=== PATIENT | female | born 1955 | race Caucasian/White ===

== ENCOUNTER 2021-04-22 13:42 | Outpatient (CLI) | payer MEDICARE, SELFPAY ==
--- NOTE | ~2021-04-22 | MM_ITS ---
EXAMINATION: MM screening sylvia BI w lukas HISTORY: Screening mammogram, family history of breast cancer in her mother. TECHNIQUE: Craniocaudal and mediolateral oblique 3-D tomosynthesis images were obtained and synthetic 2-D images were generated. CAD analysis was submitted and interpreted. COMPARISON: No prior mammogram is available for comparison at this institution. BREAST PARENCHYMAL COMPOSITION: The breasts are heterogeneously dense, which may obscure small masses . FINDINGS: There is no evidence of suspicious mass, calcification, or architectural distortion to sugg est malignancy in either breast. IMPRESSION: 1. No mammographic evidence of malignancy. 2. Recommend routine screening mammography in one year. BI-RADS Category 1: Negative Reviewed, dictated and finalized at location A.
--- NOTE | ~2021-04-22 | DEXA_ITS ---
Bone Density Report Name: Lisa Norman Age: 66 Sex: Female Ethnicity: White Date of : 1955 Indication: postmenopausal; screening for osteoporosis; height loss; hysterectomy; Referring Provider: Evelio Ashley Study: Bone densitometry was performed. Exam Date: April 22, 2021 Accession number: [id number] Bone Density: Region BMD T-score Z-score Classification AP Spine(L1-L4) 0.794 -2.3 -0.3 Osteopenia Femoral Neck (Left) 0.507 -3.1 -1.4 Osteoporosis Total Hip (Left) 0.658 -2.3 -0.9 Osteopenia Femoral Neck (Right) 0.546 -2.7 -1.0 Osteoporosis Total Hip (Right) 0.670 -2.2 -0.8 Osteopenia Femoral Neck Mean 0.527 -2.9 -1.2 Osteoporosis Total Hip Mean 0.664 -2.3 -0.9 Osteopenia World Health Organization criteria for BMD impression classify patients as: Normal (T-score at or above -1.0), Osteopenia (T-score between -1.0 and -2.5), or Osteoporosis (T-score at or below -2.5). 10-year Fracture Risk: FRAX not reported because: Some T-score for Spine Total or Hip Total or Femoral Neck at or below -2.5 Clinical Information Provided by Patient: Has the following medical conditions: Hysterectomy Patient maximum height was 58 Menopause Age: 28 Drinks caffeinated beverages Onset of menses at age 15 Number of children 3 Impression: The patient has osteoporosis, based on the Left Femoral Neck T-score. Discussion: INCREASED RISK OF FRACTURE. BONE DENSITY IS UNDESIRABLY LOW AT ONE OR MORE SKELETAL SITES, CONSISTENT WITH POSTMENOPAUSAL OSTEOPOROSIS. This patient's lowest T-score meets the World Health Organization's (WHO) criteria for osteoporosis at one or more sites (T-score -2.5 or below). In untreated patients, the risk of osteoporotic fracture increases approximately two-fold for each 1.0 SD decrease in T-score. Low bone density is not the only risk factor for fracture; also consider factors such as patient's age, frailty or poor health, risk of falling, risk of injury, previous osteoporotic fracture, family history of osteoporosis, cigarette smoking, low body weight, etc. Not everyone with low bone mineral density has osteoporosis; osteomalacia and other metabolic bone disorders should also be considered. Patients who have osteoporosis should be evaluated for specific diseases and conditions (secondary causes) that may cause or contribute to bone loss. The [place] [employer] Endocrinologists (AACE) and National Osteoporosis Foundation (NOF) recommend pharmacologic intervention for all postmenopausal women whose T-score is in this range. The patient should follow a healthful lifestyle (good nutrition with adequate calcium and vitamin D, and appropriate weight-bearing exercise). Follow-Up: Consider a repeat BMD and Vertebral Fracture Assessment (VFA) exam in 2 year
--- NOTE | ~2021-04-22 | XR_ITS ---
EXAMINATION: XR chest 2V EXAM DATE: 04/22/2021 14:33 INDICATION: Cough x 4 months. TECHNIQUE: Frontal and lateral projections of the chest obtained and reviewed. There is no prior ghassan dy for comparison. FINDINGS: The lungs are clear. There are no pleural effusions. The cardiomediastinal silhouette is within normal limits. There is no pneumothorax suspected. The bones and soft tissues are unremarkab le. IMPRESSION: No acute cardiopulmonary findings. Reviewed, dictated and finalized at location B.
[2021-04-22 13:58] LABS: Basophils Absolute Auto 0.08 K/mm3 (0.00-0.10); Basophils Percent Auto 0.9 % (0.0-1.0); Eosinophils Absolute Auto 0.19 K/mm3 (0.02-0.50); Eosinophils Percent Auto 2.2 % (1.0-6.0); Hematocrit 37.7 % (35.0-42.0); Hemoglobin 12.3 g/dL (11.7-13.8); Immature Granulocyte Absolute 0.03 K/mm3 (0.00-0.00); Immature Granulocyte Percent A 0.3 % (0.0-0.0); Lymphocytes Absolute Auto 2.79 K/mm3 (1.10-4.50); Lymphocytes Percent Auto 32.4 % (18.0-42.0); Mean Corpuscular HGB Conc 32.6 g/dL (32.0-36.0); Mean Corpuscular Hemoglobin 26.7 pg (27.0-31.0); Mean Platelet Volume 9.7 fl (9.2-11.8); Monocytes Absolute Auto 0.63 K/mm3 (0.10-0.90); Monocytes Percent Auto 7.3 % (2.0-11.0); Neutrophils Absolute Auto 4.9 K/mm3 (1.7-7.2); Neutrophils Percent Auto 56.9 % (50.0-70.0); Platelet Count Result 199 K/mm3 (150-420); White Blood Count 8.6 K/mm3 (4.8-10.8)
[2021-04-22 14:04] LABS: Add Urine Microscopic? YES; Appearance Urine Clear (Clear); Bilirubin Urine Negative (Negative); Blood Urine Negative (Negative); Color Urine Light Yellow (Yellow); Glucose Urine UA Negative (Negative); Ketones Urine Negative (Negative); Leukocyte Esterase Ur Trace (Negative); Nitrate Urine Negative (Negative); Protein Urine Negative (Negative); Specific Grav Ur <= 1.005 (1.010-1.020); Urobilinogen Urine 0.2 mg/dL (0.2-1.0); pH Urine 6.5 (5.0-8.0)
[2021-04-22 14:09] LABS: RBC Urine None seen /hpf (0-2); Squamous Epithelial Cell Urine Rare /hpf (Few); WBC Urine 0-3 /hpf (0-3)
[2021-04-22 14:10] LABS: Bacteria Urine None seen /hpf
[2021-04-22 14:42] LABS: Alanine Aminotransferase 24 U/L (14-59); Albumin Level 3.8 g/dL (3.4-5.0); Alkaline Phosphatase 134 U/L (46-116); Anion Gap 13 mmol/L (8-16); Aspartate Amino Transferase 21 U/L (15-37); Bilirubin,Total 0.2 mg/dL (0.00-1.00); Blood Urea Nitrogen 9 mg/dL (7-18); Calcium 8.9 mg/dL (8.5-10.1); Carbon Dioxide 26 mmol/L (21-32); Chloride 106 mmol/L (98-108); Cholesterol 267 mg/dL (0-200); Estimated Glomerular Filt Rate > 60; Glucose 82 mg/dL (70-99); HDL Direct 79 mg/dL (40-60); LDL Cholesterol Calculated 167 mg/dL (<130); Osmolality Calculated 297 mOsm/kg (285-295); Potassium 4.1 mmol/L (3.5-5.1); Sodium 145 mmol/L (136-145); Thyroid Stimulating Hormone 1.88 uIU/mL (0.36-3.74); Total Protein 6.9 g/dL (6.4-8.2); Triglycerides 106 mg/dL (0-150)
[2021-04-29 20:02] LABS: Vitamin D 25 Hydroxy 29 ng/mL (30-100)
== END 2021-04-22 13:43 | disposition home or self-care (01) ==
PROVIDERS: PCP Internal Medicine; Visit Provider Internal Medicine
DX: Z12.31 Encounter for screening mammogram for malignant neoplasm of breast (principal); R05 Cough; Z13.820 Encounter for screening for osteoporosis; Z78.0 Asymptomatic menopausal state; R63.5 Abnormal weight gain; Z79.899 Other long term (current) drug therapy
CPT/HCPCS: 36415; 71046; 77063; 77067; 77080; 80053; 80061; 81001; 82306; 84443; 85025

== ENCOUNTER 2021-05-14 09:36 | Outpatient (CLI) | payer MEDICARE, SELFPAY ==
--- NOTE | ~2021-05-14 | XR_ITS ---
EXAMINATION: XR ribs RT 2V INDICATION: Right rib pain TECHNIQUE: 3 views of the right ribs were obtained. COMPARISON: 04/22/2021 FINDINGS: No displaced rib fracture is identified. The visualized portions of the thorax are unremark able. There is no pleural effusion or pneumothorax. IMPRESSION: 1. No acute cardiopulmonary abnormality or evidence of displaced rib fracture. Reviewed, dictated and finalized at location A.
== END 2021-05-14 09:37 | disposition home or self-care (01) ==
LOC: CHSIMG 09:38
PROVIDERS: PCP Internal Medicine; Visit Provider Nurse Practitioner Family
DX: R07.81 Pleurodynia (principal)
CPT/HCPCS: 71100

== ENCOUNTER 2022-12-31 07:19 | Outpatient (CLI) | payer MEDICARE, SELFPAY ==
--- NOTE | ~2022-12-31 | MM_ITS ---
EXAMINATION: MM screening sylvia BI w lukas HISTORY: Screening mammogram TECHNIQUE: Craniocaudal and mediolateral oblique 3-D tomosynthesis images were obtained and synthetic 2-D images were generated. CAD analysis was submitted and interpreted. COMPARISON: 04/22/2021 bilateral screening mammogram BREAST PARENCHYMAL COMPOSITION: FINDINGS: There is no evidence of suspicious mass, calcification, or architectural distortion to sugg est malignancy in either breast. There has been no suspicious interval change. IMPRESSION: 1. No mammographic evidence of malignancy. 2. Recommend routine screening mammography in one year. BI-RADS Category 1: Negative Reviewed, dictated and finalized at location A.
== END 2022-12-31 07:20 | disposition home or self-care (01) ==
LOC: CHSIMG 07:22
PROVIDERS: PCP Internal Medicine; Visit Provider Internal Medicine
DX: Z12.31 Encounter for screening mammogram for malignant neoplasm of breast (principal)
CPT/HCPCS: 77063; 77067

== ENCOUNTER 2023-02-16 16:30 | Outpatient (CLI) | payer MEDICARE, SELFPAY ==
--- NOTE | ~2023-02-16 | XR_ITS ---
EXAMINATION: XR chest 2V DATE: 02/16/2023 17:04 INDICATION: Shortness of breath. Cough. TECHNIQUE: Frontal and lateral views of the chest were obtained. COMPARISON: None. FINDINGS: There is no pneumonia, pleural effusion, or pneumothorax. Cardiomegaly is noted. IMPRESSION: 1. Cardiomegaly. Reviewed, dictated and finalized at location E. IMPRESSION: 1. Cardiomegaly.
== END 2023-02-16 16:31 | disposition home or self-care (01) ==
LOC: CHSIMG 16:32
PROVIDERS: PCP Internal Medicine; Visit Provider Internal Medicine
DX: R05.9 Cough, unspecified (principal); I51.7 Cardiomegaly
CPT/HCPCS: 71046

== ENCOUNTER 2023-02-26 14:15 | Outpatient (CLI) | payer MEDICARE, SELFPAY ==
--- NOTE | 2023-02-26 01:00 | ECHO_ITS ---
Patient Info Name: Lisa Norman Age: 67 years : 1955 Gender: Female Ht: 59 in Wt: 120 lbs BSA: 1.52 m2 HR: 65 bpm BP: 126 / 73 mmHg Heart Rhythm: Sinus Rhythm Technical Quality: Fair Exam Date: 02/26/2023 2:12 PM Exam Location: [facility] Patient Status: Outpatient Admit Date: 02/26/2023 Staff Ordering Physician: Evelio Ashley MD Copier Operator: Suzy Salvador RDCS Attending Provider: Evelio Ashely MD Exam Type: CA echo doppler color flow Study Info Indications - enlarged heart Complete two-dimensional, color flow and Doppler transthoracic echocardiogram is performed. Summary 1. Complete two-dimensional, color flow and Doppler transthoracic echocardiogram is performed. 2. Left ventricular chamber dimension is normal. 3. Left ventricular systolic function is normal, estimated at 65-70%. 4. The left ventricular diastolic function is grade I diastolic dysfunction. 5. E/e' 18 is elevated. 6. There is trace tricuspid valve regurgitation. 7. No pulmonary hypertension, estimated pulmonary arterial systolic pressure is 27 mmHg. Left Ventricle E/e' 18 is elevated. Left ventricular chamber dimension is normal. Left ventricular systolic function is normal, estimated at 65-70%. The left ventricular diastolic function is grade I diastolic dysfunction. Right Ventricle Right ventricular systolic function is normal and with normal TAPSE 2.2 cm. Right ventricular chamber dimension is normal. Left Atria Left atrial chamber dimension is normal. Right Atria Right atrial chamber dimension is normal. Aortic Valve The aortic valve is trileaflet. There is no aortic valve stenosis. There is no aortic valve regurgitation. Pulmonic Valve There is no pulmonic regurgitation. Mitral Valve There is no mitral valve stenosis. There is no mitral valve regurgitation. Tricuspid Valve There is trace tricuspid valve regurgitation. No pulmonary hypertension, estimated pulmonary arterial systolic pressure is 27 mmHg. Pericardium/Pleural There is no pericardial effusion. Inferior Vena Cava Normal inferior vena cava with >50% collapse upon inspiration consistent with normal right atrial pressure, 5 mmHg. Aorta The aortic root size at the sinus of Valsalva is normal. Left Ventricular Outflow Tract Name Value Normal LVOT 2D LVOT Diameter 2.0 cm LVOT Doppler LVOT Peak Velocity 92 cm/s LVOT Peak Gradient 3 mmHg LVOT Mean Gradient 2 mmHg LVOT VTI 19 cm LVOT VTI/AV VTI Ratio 0.8 LVOT Stroke Volume 58 ml Pulmonic Valve Name Value Normal RVOT Doppler RVOT Peak Gradient 1 mmHg PV Doppler PV Peak Velocity 92 cm/s PV Peak Gradient 3 mmHg
== END 2023-02-26 14:16 | disposition home or self-care (01) ==
LOC: CHSIMG 14:16
PROVIDERS: PCP Internal Medicine; Visit Provider Internal Medicine
DX: I51.7 Cardiomegaly (principal)
CPT/HCPCS: 93306

== ENCOUNTER 2023-03-03 08:36 | Outpatient (CLI) | payer MEDICARE, SELFPAY ==
[2023-03-03 08:47] LABS: Basophils Absolute Auto 0.11 K/mm3 (0.00-0.10); Basophils Percent Auto 1.3 % (0.0-1.0); Eosinophils Absolute Auto 0.34 K/mm3 (0.02-0.50); Eosinophils Percent Auto 4.1 % (1.0-6.0); Hematocrit 37.3 % (35.0-42.0); Hemoglobin 12.2 g/dL (11.7-13.8); Immature Granulocyte Absolute 0.02 K/mm3 (0.00-0.00); Immature Granulocyte Percent A 0.2 % (0.0-0.0); Lymphocytes Absolute Auto 2.77 K/mm3 (1.10-4.50); Lymphocytes Percent Auto 33.2 % (18.0-42.0); Mean Corpuscular HGB Conc 32.7 g/dL (32.0-36.0); Mean Corpuscular Hemoglobin 26.9 pg (27.0-31.0); Mean Corpuscular Volume 82.3 fL (78.0-102.0); Mean Platelet Volume 9.9 fl (9.2-11.8); Monocytes Absolute Auto 0.74 K/mm3 (0.10-0.90); Monocytes Percent Auto 8.9 % (2.0-11.0); Neutrophils Absolute Auto 4.4 K/mm3 (1.7-7.2); Neutrophils Percent Auto 52.3 % (50.0-70.0); Platelet Count Result 210 K/mm3 (150-420); Red Blood Count 4.53 M/mm3 (4.20-5.40); Red Cell Distribution Width 14.2 % (11.6-14.4); White Blood Count 8.3 K/mm3 (4.8-10.8)
[2023-03-03 09:26] LABS: Alanine Aminotransferase 34 U/L (14-59); Albumin Level 3.8 g/dL (3.4-5.0); Alkaline Phosphatase 164 U/L (46-116); Anion Gap 10 mmol/L (8-16); Aspartate Amino Transferase 37 U/L (15-37); Bilirubin,Total 0.3 mg/dL (0.00-1.00); Blood Urea Nitrogen 10 mg/dL (7-18); Calcium 8.8 mg/dL (8.5-10.1); Carbon Dioxide 26 mmol/L (21-32); Chloride 107 mmol/L (98-108); Estimated Glomerular Filt Rate > 60; Glucose 96 mg/dL (70-99); Osmolality Calculated 295 mOsm/kg (285-295); Potassium 3.8 mmol/L (3.5-5.1); Sodium 143 mmol/L (136-145); Total Protein 7.3 g/dL (6.4-8.2)
[2023-03-03 09:33] LABS: CRP < 0.5 mg/dL (0.0-0.9)
== END 2023-03-03 08:37 | disposition home or self-care (01) ==
LOC: CHSLAB 08:37
PROVIDERS: PCP Internal Medicine; Visit Provider Internal Medicine
DX: I51.7 Cardiomegaly (principal)
CPT/HCPCS: 36415; 80053; 85025; 86140

== ENCOUNTER 2023-03-08 09:00 | Outpatient (NON) | payer MEDICARE, SELFPAY | END 2023-03-08 09:01 | disposition home or self-care (01) | PROVIDERS: PCP Internal Medicine; Visit Provider Internal Medicine Gastroenterology | DX: R85.7 Abnormal histological findings in specimens from digestive organs and abdominal cavity (principal) | CPT/HCPCS: 88305 ==

== ENCOUNTER 2023-03-08 10:58 | Day surgery (SDC) | payer MEDICARE, SELFPAY ==
[2023-02-23 11:13] VITALS: BMI 24.5
--- NOTE | 2023-03-05 14:16 | WPDANESEPPF ---
Anes - Initial Pre Proc Eval Procedure: Operation Date: 03/08/23 13:00 Proposed Procedures p Esophagogastroduodenoscopy - Kevin Vitale MD s Diagnostic Colonoscopy - Kevin Vitale MD Date/Time: 03/05/23 14:16 Surgeon: Kevin Vitale MD Pre Op Diagnosis: IBS w/Diarrhea, Gerd, Diarrhea Patient Data Age: 67 Gender: F Height: 1.5 m Weight: 55 kg Allergies Allergy/AdvReac Type Severity Reaction Status Date / Time No Known Allergies Allergy Unverified 03/08/23 11:43 Home Medications Medication Instructions Recorded Confirmed Type calcium polycarbophil 625 mg 1,250 mg PO DAILY 02/03/23 03/08/23 History tablet (FiberCon) cholecalciferol (vitamin D3) 125 125 mcg PO DAILY 02/03/23 03/08/23 History mcg (5,000 unit) capsule ergocalciferol (vitamin D2) 1,250 1,250 mcg PO WEEKLY 02/03/23 03/08/23 History mcg (50,000 unit) capsule famotidine 40 mg tablet 40 mg PO DAILY #30 tabs 02/03/23 03/08/23 Rx rosuvastatin 5 mg tablet 5 mg PO DAILY 02/03/23 03/08/23 History conjugated estrogens 0.625 mg/gram 1 applic vaginal DAILY 02/23/23 03/08/23 History vaginal cream (Premarin) montelukast 10 mg tablet 10 mg PO DAILY 02/23/23 03/08/23 History (Singulair) dicyclomine 10 mg capsule See Rx Instructions .Route 02/26/23 03/08/23 Rx .COMPLEX #120 caps Patient hx anesthesia problems: none Family hx anesthesia problems: none Results Review: All pre-operative results and documents have been reviewed as part of the pre-operative evaluation. COUNT INCLUDES THE [facility] Past Medical History Medical History (Updated 03/08/23 @ 12:21 by Wes Harrison DO) Abnormal inflammatory bowel disease panel Edema in legs, echo pending Enlarged heart per X ray, echo pending GERD (gastroesophageal reflux disease) Hyperlipidemia Irritable bowel syndrome with diarrhea Nausea Social History Social History Smoking status: Never smoker Alcohol intake: never Substance use: never Substance use type: does not use Living arrangements: with family Spiritual care concerns: No Anes - Eval Final PreProcedure Day of Procedure 03/05/23 14:16 Patient weight: overweight Heart: regular rate and rhythm Lungs: clear to auscultation Airway: Mallampati scale class II Neurological: alert and oriented Last oral intake: >/= 8 hours ASA classification: III Emergent: no Anesthetic plan: proceed Anesthesia type and monitoring: general GIVS and standard monitoring Results Review: All pre-operative results and documents have been reviewed as part of the pre-operative evaluation. Informed Consent: The patient's anesthetic plan and its attendant risks and benefits were discussed with the patient/family/POA. Questions were solicited and answers provided to the satisfaction of the patient/family/POA.
[2023-03-08 11:40] VITALS: BP 107/80; PULSE 88; RESP 20; TEMP 36.7; O2SAT 100
[2023-03-08] MEDS: LACTATED RINGERS 1,000 ML 150 ML IV CONT (11:57)
--- NOTE | 2023-03-08 12:06 | PM.HPGS ---
History of Present Illness History of Present Illness Consent: Risks, benefits, and alternatives have been discussed and questions answered. Patient agrees to proceed with procedure. Chief complaint: IBS w/Diarrhea, Gerd, Diarrhea Narrative: Lisa Norman is a 67 year old female who was referred for persistent acid reflux symptoms. She denies dysphagia. She had previously been using famotidine. She is also having a change in bowel habits. A couple of months ago she had severe diarrhea with in fact some incontinence. There has been no blood in her stools. Blood work that was done reveals slight elevation of ASCA-IgG but a normal IgA. There is no significant weight loss. She did apparently have a colonoscopy a few years ago for screening revealing 1 small polyp. Review of Systems Review of Systems: All systems reviewed & are unremarkable except as noted in HPI and below PMFSH Past Medical History Medical History Abnormal inflammatory bowel disease panel GERD (gastroesophageal reflux disease) Hyperlipidemia Irritable bowel syndrome with diarrhea Nausea Social History Social History Smoking status: Never smoker Alcohol intake: never Substance use: never Substance use type: does not use Living arrangements: with family Spiritual care concerns: No Meds Home Medications and Allergies Home Medications Medication Instructions Recorded Confirmed Type calcium polycarbophil 625 mg 1,250 mg PO DAILY 02/03/23 03/08/23 History tablet (FiberCon) cholecalciferol (vitamin D3) 125 125 mcg PO DAILY 02/03/23 03/08/23 History mcg (5,000 unit) capsule ergocalciferol (vitamin D2) 1,250 1,250 mcg PO WEEKLY 02/03/23 03/08/23 History mcg (50,000 unit) capsule famotidine 40 mg tablet 40 mg PO DAILY #30 tabs 02/03/23 03/08/23 Rx rosuvastatin 5 mg tablet 5 mg PO DAILY 02/03/23 03/08/23 History conjugated estrogens 0.625 mg/gram 1 applic vaginal DAILY 02/23/23 03/08/23 History vaginal cream (Premarin) montelukast 10 mg tablet 10 mg PO DAILY 02/23/23 03/08/23 History (Singulair) dicyclomine 10 mg capsule See Rx Instructions .Route 02/26/23 03/08/23 Rx .COMPLEX #120 caps Allergies Allergy/AdvReac Type Severity Reaction Status Date / Time No Known Allergies Allergy Unverified 03/08/23 11:43 Vital Signs Vital Signs - 24 hr 03/08/23 11:40 Temperature 36.7 C Pulse Rate 88 Respiratory Rate 20 Blood Pressure 107/80 Pulse Oximetry 100 Oxygen Delivery Room Air Exam Const: General: alert Orientation/consciousness: patient oriented x3 Resp: Auscultation: clear to auscultation bilaterally Cardio: Rhythm: regular rhythm GI: GI Palp: Yes Soft to palpation and No Tenderness to palpation present (GI) Neuro: General: patient oriented x3 Results Results Additional studies: EGD with possible biopsy or dilatation or cautery. Assessment and Plan Assessment and plan (1) GERD (gastroesophageal reflux disease): Code(s): K21.9 - Gastro-esophageal reflux disease without esophagitis Status: Acute Assessment and Plan: EGD with possible biopsy or dilatation or cautery. (2) Change in bowel habits: Code(s): R19.4 - Change in bowel habit Status: Acute Assessment and Plan: Colonoscopy with possible biopsy or polypectomy or cautery or injection of substances.
[2023-03-08 12:51] VITALS: BP 93/60; PULSE 89; RESP 16; O2SAT 97
[2023-03-08 13:01] VITALS: BP 113/79; PULSE 87; RESP 16; O2SAT 100
[2023-03-08 13:11] VITALS: BP 128/84; PULSE 72; RESP 18; O2SAT 98
--- NOTE | 2023-03-08 13:24 | WPDANESPN ---
Anes - Prog Note Post-Op Date/Time: 03/08/23 13:24 Cardiovascular status: normal Respiratory status: normal Airway patency: baseline Mental status: baseline Post-Op hydration status: normal Vital Signs: Last Vital Signs Temp 36.7 C 03/08/23 11:40 Pulse 87 03/08/23 13:01 Resp 16 03/08/23 13:01 BP 113/79 03/08/23 13:01 Pulse Ox 100 03/08/23 13:01 O2 Del Method Room Air 03/08/23 13:01 Pain Score (VAS): 0 I/O: Intake & Output 03/07/23 03/08/23 03/08/23 23:59 07:59 15:59 Intake Total 200 Balance 200 Post-procedural complaints: none Patient Feedback: Patient satisfied with anesthetic care. Other Findings: Patient vital signs back to baseline. Patient denies nausea and vomiting. Patient's pain under control. Patient OK for discharge.
== END 2023-03-08 13:41 | disposition home or self-care (01) ==
PROVIDERS: PCP Internal Medicine; Visit Provider Internal Medicine Gastroenterology
PROC: 0DJ08ZZ Inspection of Upper Intestinal Tract, Via Natural or Artificial Opening Endoscopic (ICD-10-PCS; CPT 43235; principal; 2023-03-08 13:00)
PROC: 0DJD8ZZ Inspection of Lower Intestinal Tract, Via Natural or Artificial Opening Endoscopic (ICD-10-PCS; CPT 45378; 2023-03-08 13:00)
DX: R19.4 Change in bowel habit (principal)
CPT/HCPCS: 45380; 43239

== ENCOUNTER 2023-11-12 09:30 | Outpatient (CLI) | payer MEDICARE, SELFPAY ==
[2023-11-12 11:30] LABS: Toxigenic C. Diff NEGATIVE (NEGATIVE)
[2023-11-20 02:13] LABS: Calprotectin, Stool 84 mcg/g; Pancreatic Elastase, Stool >500 mcg/g
== END 2023-11-12 09:31 | disposition home or self-care (01) ==
LOC: ANHLAB 09:31
PROVIDERS: PCP Internal Medicine; Visit Provider Nurse Practitioner
DX: R19.7 Diarrhea, unspecified (principal); R15.9 Full incontinence of feces
CPT/HCPCS: 82653; 83993; 87045; 87269; 87427; 87449; 87493

== ENCOUNTER 2024-05-16 13:19 | Outpatient (CLI) | payer MEDICARE, SELFPAY ==
--- NOTE | ~2024-05-16 | DEXA_ITS ---
Bone Density Report Name: AMIE SANCHEZ Age: 69 Sex: Female Ethnicity: White Date of : 1955 Indication: postmenopausal; screening for osteoporosis; height loss; hysterectomy; Referring Provider: Evelio Ashley Study: Bone densitometry was performed. Exam Date: May 16, 2024 Accession number: [id number] Bone Density: Region BMD T-score Z-score Classification AP Spine(L1-L4) 0.829 -2.0 0.2 Osteopenia Femoral Neck (Left) 0.522 -2.9 -1.1 Osteoporosis Total Hip (Left) 0.650 -2.4 -0.8 Osteopenia Femoral Neck (Right) 0.586 -2.4 -0.5 Osteopenia Total Hip (Right) 0.674 -2.2 -0.6 Osteopenia Femoral Neck Mean 0.554 -2.7 -0.8 Osteoporosis Total Hip Mean 0.662 -2.3 -0.7 Osteopenia World Health Organization criteria for BMD impression classify patients as: Normal (T-score at or above -1.0), Osteopenia (T-score between -1.0 and -2.5), or Osteoporosis (T-score at or below -2.5). 10-year Fracture Risk: FRAX not reported because: Some T-score for Spine Total or Hip Total or Femoral Neck at or below -2.5 Clinical Information Provided by Patient: Has used the following medications: Vitamin D, Calcium Has the following medical conditions: Hysterectomy Patient maximum height was 58 Menopause Age: 28 Drinks caffeinated beverages Onset of menses at age 15 Number of children 3 Impression: The patient has osteoporosis, based on the Left Femoral Neck T-score. Discussion: INCREASED RISK OF FRACTURE. BONE DENSITY IS UNDESIRABLY LOW AT ONE OR MORE SKELETAL SITES, CONSISTENT WITH POSTMENOPAUSAL OSTEOPOROSIS. This patient's lowest T-score meets the World Health Organization's (WHO) criteria for osteoporosis at one or more sites (T-score -2.5 or below). In untreated patients, the risk of osteoporotic fracture increases approximately two-fold for each 1.0 SD decrease in T-score. Low bone density is not the only risk factor for fracture; also consider factors such as patient's age, frailty or poor health, risk of falling, risk of injury, previous osteoporotic fracture, family history of osteoporosis, cigarette smoking, low body weight, etc. Not everyone with low bone mineral density has osteoporosis; osteomalacia and other metabolic bone disorders should also be considered. Patients who have osteoporosis should be evaluated for specific diseases and conditions (secondary causes) that may cause or contribute to bone loss. The [place] Association of Clinical Endocrinologists (AACE) and National Osteoporosis Foundation (NOF) recommend pharmacologic intervention for all postmenopausal women whose T-score is in this range. The patient should follow a healthful lifestyle (good nutrition with adequate calcium and vitamin D, and appropriate weight-bearing exercise). Follow-Up: Consider a repeat BMD and Ve
--- NOTE | ~2024-05-16 | MM_ITS ---
EXAMINATION: MM screening sylvia BI w lukas HISTORY: Screening TECHNIQUE: Craniocaudal and mediolateral oblique 3-D tomosynthesis images were obtained and synthetic 2-D images were generated. CAD analysis was submitted and interpreted. COMPARISON: Comparison to multiple prior studies sequentially, with oldest reviewed study dated 03/2021. BREAST PARENCHYMAL COMPOSITION: Not dense: There are scattered areas of fibroglandular density. FINDINGS: There is no evidence of suspicious mass, calcification, or architectural distortion to sugg est malignancy in either breast. There has been no suspicious interval change. IMPRESSION: 1. No mammographic evidence of malignancy. 2. Recommend routine screening mammography in one year. BI-RADS Category 1: Negative Reviewed, dictated and finalized at location B.
== END 2024-05-16 13:20 | disposition home or self-care (01) ==
LOC: CHSIMG 13:20
PROVIDERS: PCP Internal Medicine; Visit Provider Internal Medicine
DX: Z12.31 Encounter for screening mammogram for malignant neoplasm of breast (principal); Z78.0 Asymptomatic menopausal state; M85.89 Other specified disorders of bone density and structure, multiple sites; M81.0 Age-related osteoporosis without current pathological fracture
CPT/HCPCS: 77063; 77067; 77080

== ENCOUNTER 2024-10-06 10:50 | Outpatient (CLI) | payer MEDICARE, SELFPAY ==
--- NOTE | ~2024-10-06 | XR_ITS ---
Right Hand Technique: PA, oblique, and lateral views were obtained. Clinical History: Third digit pain Findings: No acute fracture or dislocation is seen. Osseous alignment is anatomic. Joint spaces are p reserved. Soft tissues are unremarkable. Impression: Unremarkable right hand. Reviewed, dictated and finalized at location . 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
[2024-10-06 11:05] LABS: Hematocrit 37.1 % (35.0-42.0); Hemoglobin 12.2 g/dL (11.7-13.8); Mean Corpuscular HGB Conc 32.9 g/dL (32-36); Mean Corpuscular Hemoglobin 26.7 pg (27.0-31.0); Mean Corpuscular Volume 81.2 fL (78.0-102.0); Mean Platelet Volume 9.3 fl (9.2-11.8); Platelet Count Result 219 K/mm3 (150-420); Red Blood Count 4.57 M/mm3 (4.20-5.40); Red Cell Distribution Width 13.7 % (11.6-14.4); White Blood Count 9.8 K/mm3 (4.8-10.8)
[2024-10-06 13:09] LABS: Alanine Aminotransferase 18 U/L (14-59); Albumin Level 3.6 g/dL (3.4-5.0); Alkaline Phosphatase 148 U/L (46-116); Anion Gap 12 mmol/L (4-12); Aspartate Amino Transferase 19 U/L (15-37); Bilirubin,Total 0.2 mg/dL (0.00-1.00); Blood Urea Nitrogen 14 mg/dL (7-18); Calcium 9.1 mg/dL (8.5-10.1); Carbon Dioxide 25 mmol/L (21-32); Chloride 104 mmol/L (98-108); Cholesterol 232 mg/dL (0-200); Estimated Glomerular Filt Rate > 60; Glucose 86 mg/dL (70-99); HDL Direct 88 mg/dL (40-60); LDL Cholesterol Calculated 122 mg/dL (<130); Osmolality Calculated 291 mOsm/kg (285-295); Potassium 4.2 mmol/L (3.5-5.1); Sodium 141 mmol/L (136-145); Total Protein 6.6 g/dL (6.4-8.2); Triglycerides 109 mg/dL (0-150); Uric Acid 2.2 mg/dL (2.6-6.0)
[2024-10-06 13:10] LABS: CRP < 0.5 mg/dL (0.0-0.9)
== END 2024-10-06 10:51 | disposition home or self-care (01) ==
PROVIDERS: PCP Internal Medicine; Visit Provider Internal Medicine
DX: M79.641 Pain in right hand (principal); E78.5 Hyperlipidemia, unspecified
CPT/HCPCS: 36415; 73130; 80053; 80061; 84550; 85027; 86140

== ENCOUNTER 2024-11-17 10:24 | Outpatient (CLI) | payer MEDICARE, SELFPAY ==
--- NOTE | ~2024-11-17 | XR_ITS ---
EXAMINATION: XR ankle LT min 3V DATE: 11/17/2024 10:56 INDICATION: Left ankle injury and pain. TECHNIQUE: 3 views of left ankle were obtained. COMPARISON: None. FINDINGS: There is an oblique fracture of distal fibula with medial aspect of the fracture line at th e level of the tibial plafond. The distal fracture fragment demonstrates 2 mm posterolateral displace ment. There is mild midfoot osteoarthritis. There are enthesophytes at the posterior and plantar aspe cts of calcaneal tuberosity. There is ankle soft tissue swelling. IMPRESSION: 1. Oblique fracture of distal fibula. Reviewed, dictated and finalized at location A. 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
--- NOTE | ~2024-11-17 | XR_ITS ---
EXAMINATION: XR foot LT min 3V DATE: 11/17/2024 10:56 INDICATION: Left foot pain. TECHNIQUE: 3 views of left foot were obtained. COMPARISON: None. FINDINGS: There is an oblique fracture of distal fibula. The distal fracture fragment demonstrates 2 mm posterolateral displacement. There is mild osteoarthritis of first metatarsophalangeal joint and s ome of the interphalangeal joints. There are enthesophytes at the posterior and plantar aspects of ca lcaneal tuberosity. IMPRESSION: 1. Oblique fracture of distal fibula. 2. Mild polyarticular osteoarthritis. Reviewed, dictated and finalized at location A. HIATRIC ARNP
[2024-11-17 11:20] LABS: Alanine Aminotransferase 27 U/L (14-59); Albumin Level 3.7 g/dL (3.4-5.0); Alkaline Phosphatase 150 U/L (46-116); Anion Gap 9 mmol/L (4-12); Aspartate Amino Transferase 23 U/L (15-37); Bilirubin,Total 0.3 mg/dL (0.00-1.00); Blood Urea Nitrogen 25 mg/dL (7-18); Calcium 8.8 mg/dL (8.5-10.1); Carbon Dioxide 26 mmol/L (21-32); Chloride 103 mmol/L (98-108); Estimated Glomerular Filt Rate 58; GGT 58 U/L (5-55); Glucose 97 mg/dL (70-99); Osmolality Calculated 290 mOsm/kg (285-295); Potassium 4.6 mmol/L (3.5-5.1); Sodium 138 mmol/L (136-145); Total Protein 6.6 g/dL (6.4-8.2)
== END 2024-11-17 10:25 | disposition home or self-care (01) ==
PROVIDERS: PCP Internal Medicine; Visit Provider Internal Medicine
DX: S93.402A Sprain of unspecified ligament of left ankle, initial encounter (principal); R74.8 Abnormal levels of other serum enzymes; S82.432A Displaced oblique fracture of shaft of left fibula, initial encounter for closed fracture; M19.072 Primary osteoarthritis, left ankle and foot
CPT/HCPCS: 36415; 73610; 73630; 80053; 82977; 84075; 84080

== ENCOUNTER 2024-11-29 08:51 | Outpatient (CLI) | payer MEDICARE, SELFPAY ==
--- NOTE | ~2024-11-29 | XR_ITS ---
Left ankle Technique: AP, oblique, and lateral views were obtained. Clinical History: Fracture follow-up COMPARISON: 11/17/2024 Findings: Oblique, minimally fracture the distal fibula is essentially unchanged from prior exam.. An kle mortise and other visualized joint spaces are preserved. Soft tissues are otherwise unremarkable . Impression: Essentially stable oblique, minimally displaced fracture the distal fibula. Reviewed, dictated and finalized at location . 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
--- OUTSIDE RECORDS SUMMARY | 2024-11-29 09:27 | XMS_ITS | Data Portability ---
Author Organization [facility], [address] [place] [address] ([place]) Address [address] [place] [address] Care Team Providers Care First Crusher Name Role Phone BALAJIDAVY GREEN Primary Care Provider [phone] Assessment Encounter Date Assessment Date Assessment LastModified by Organization Details LastModified Time 10/05/2024 10/05/2024 Physical therapy assessment: Patient presents with decreased pelvic floor strength including the external anal sphincter with a defect at the 12:00 location. Patient seems to have trouble with diarrhea however increasing fiber has made a positive impact on formation of her stools and thus decreased involuntary loss of stool. However she still has some loss of stool and most likely due to weakness and atrophy with in the sphincter lower abdominals and hips which prevent full closure and increase in the colorectal angle. Patient to be seen 1 time a week for 12 weeks Treatment will consist of the following: Therapeutic exercise Pelvic floor strengthening Hip strengthening of the gluteus medius Lower abdominal and core strengthening Therapeutic activities Increasing fiber trying to achieve 20 to 25 g/day Increasing water intake and decreasing bowel irritants. Electrical stimulation 50 Hz 10 seconds on 10 seconds off 15 minutes. Patient would benefit from a home units but will have to go through a 30-day trial first. Home exercise program was issued today with handouts and will be upgraded at each visit as patient tolerates The above rehabilitation plan has been prescribed and developed for the necessary care of this patient. Patient is in agreement with this plan. Thank you for this referral. Please refer to the Physical Therapy evaluation dated 10/05/2024. To comply with Medicare regulations, please review the documentation and indicate whether you agree or disagree with the plan of care/treatment. If you agree, please simply sign off on my documentation. Please reach out to me with any questions, thank you. [email or web address] Not available 10/05/2024 14:40:26 11/01/2024 11/01/2024 Physical therapy assessment: Patient has weak pelvic floor which carries over to delay D recruitment and resultant compensation with the diaphragm because of the weakness. Patient is not sure she is going to be able to continue physical therapy because of the commute but at this time she is not ready to say she wants to be discharged. Plan: Continue with physical therapy per plan of care [email or web address] Not available 11/01/2024 10:43:51 11/16/2024 11/16/2024 DATE OF INVESTIGATION: October 31, 2024 DATE OF INTERPRETATON: November 16, 2024 REASON FOR STUDY: Fecal incontinence. SUMMARY OF DATA: The patient has a low mean resting pressure of 21.6 mmHg and a short anal canal length of 1.1 cm. She has a diminished squeeze pressure with a mean increase of only 6.5 mmHg but a squeeze duration of 14.8 seconds which is low normal. Appropriate cough pressures. She has a paradoxical response to push with a 0% relaxation and residual push pressure of 29.4 mmHg. Diminished sensation pressure with a first sensation volume of 30 mL and a maximum tolerable volume of only 50 mL. RAIR is present at 58% with a 50 cc balloon. ASSESSMENT: Fecal incontinence. PLAN: The patient s anal manometry data would suggest that she would be a great candidate for sacral neuromodulation. Recommend an office visit to discuss. [email or web address] Not available 11/16/2024 18:07:27 Plan of Treatment Reminders Order Date Submit Date Provider Last Modified By Organization Details Last Modified Time Details Appointments None record ed. Lab None record ed. Referral None record ed. Procedures None record ed. Surgeries None record ed. Imaging None record ed. Medication Orders None record ed. Patient Targets Encounter Date Encounter Id Patient Goals Patient Target Last Modified By Organization Details Last Modified Time Goals:STG's to be met in 6 weeks1. Patient to increase endurance of her contraction holding 8 to 10 seconds2. Increase pelvic floor strength to a 2 out of 53. Increasing external anal sphincter strength to a 2 out of 54. Increasing lower abdominal strength to a 2+ out of 5LTG's to be met in 12 weeks1. Patient reports 75% decrease in fecal leakage with urge patient to hold back stool even when semisolid.2. Patient to report 75% decrease in fecal leakage with stress such as coughing3. Patient to demonstrate pelvic bracing with functional activities such as squat and lunge and cough4. Rehab potential: Fair rehab potential. Limiting factors include the severity of her loss of strength and a defect in the external anal sphincter. But feels she has fairly good potential to immediate release to the above-stated goalsPatients goal: To not leak stool [email or web address] Not available 10/05/2024 14:38:06 Goals:STG's to be met in 6 weeks1. Patient to increase endurance of her contraction holding 8 to 10 seconds2. Increase pelvic floor strength to a 2 out of 53. Increasing external anal sphincter strength to a 2 out of 54. Increasing lower abdominal strength to a 2+ out of 5LTG's to be met in 12 weeks1. Patient reports 75% decrease in fecal leakage with urge patient to hold back stool even when semisolid.2. Patient to report 75% decrease in fecal leakage with stress such as coughing3. Patient to demonstrate pelvic bracing with functional activities such as squat and lunge and cough4. Rehab potential: Fair rehab potential. Limiting factors include the severity of her loss of strength and a defect in the external anal sphincter. But feels she has fairly good potential to immediate release to the above-stated goalsPatients goal: To not leak stool [email or web address] Not available 11/01/2024 10:39:00 Patient InstructionsNo instructions recorded. Reason for Referral None Reported. Results Created Date Observation Date Name Description Value Unit Range Abnormal Flag Note LastModifiedBy Organization Detail LastModifiedTime 11/03/19 25 10/31/2024 anore ctal manom etry (PROC ) No observ ation record ed. [email or web address] Not Available 2024 09:56:08 Result Notes None recorded. Problems Name Problem SNOMED Code Status Onset Date Resolution Date Notes Provider Name and Address Organization Details Recorded Time Incontinenc e of feces 59438435 Active 2023 [facility] 5 18:18:08 Chronic diarrhea 799761831 Active 2023 Matty Albarran MD [address] [place] [address], [phone], [facility] 4 09:58:25 Acute diarrhea 199545807 Active 2023 Whitley Machado [facility] 4 08:09:58 Complete fecal incontinenc e 1390565830780 107 Active 2023 Mariposa Carpenter, DPT [address] [place] [address], [phone], [facility] 4 12:05:26 Problem Notes Documentation Provider Name and Address Organization Details Recorded Time [facility] [address] [address] Lisa Norman 69yo F 1955 #[id number] 11/19/2024 DearPaul Mehdi Albarran MD, Lisa Norman was seen in our office today 11/16/2024, and a copy of that evaluation is enclosed. Thank you for allowing us to participate in the care of your patient. Please contact us with any questions. Sincerely, Electronically Signed by: SILVIA JACKSON MD Encounter Reason/DateNone recorded 11/16/2024 - 07:45AM - [address] [facility] [facility] ([place])ProblemsReviewed Problems Incontinence of feces - Onset: 07/03/2024 Chronic diarrhea - Onset: 07/03/2024 Acute diarrhea - Onset: 07/06/2024 Complete fecal incontinence - Onset: 10/05/2024 Allergies Allergies not reviewed (last reviewed 08/09/2024) NKDA Medications Medications not reviewed (last reviewed 10/31/2024) NameDate Source cholestyramine (with sugar) 4 gram powder for susp in a packetTAKE 1 PACKET TWICE A DAY BY ORAL ROUTE FOR 30 DAYS.07/03/24 filled surescripts famotidine 40 mg tabletTAKE 1 TABLET BY MOUTH EVERY DAY08/02/24 filled surescripts FiberCon 625 mg tabletTake 1 tablet(s) twice a day by oral route for 30 days.07/03/24 prescribed Matty Albarran MD montelukast 10 mg tabletTAKE 1 TABLET BY MOUTH EVERY DAY IN THE CVUYKQO50/01/24 filled surescripts rosuvastatin 5 mg tabletTAKE 1 TABLET BY MOUTH EVERY DAY07/18/24 filled surescripts Family HistoryFamily History not reviewed (last reviewed 08/09/2024) Mother - Malignant neoplasm of female breast - Malignant neoplasm of uterus - Family history of malignant neoplasm - Chronic obstructive pulmonary disease - Heart disease Maternal Aunt - Malignant tumor of rectum Unspecified Relation - Attention deficit hyperactivity disorder Brother - Arthritis - Diabetes mellitus - Heart disease - Hypertensive disorder - Hypercholesterolemia Sister - Asthma - Chronic obstructive pulmonary disease Father - Chronic obstructive pulmonary disease Daughter - Diabetes mellitus - Hypertensive disorder Social HistorySocial History not reviewed (last reviewed 08/09/2024) Substance UseDo you or have you ever smoked tobacco?: Never smokerWhat is your level of alcohol consumption?: NoneDo you use any illicit or recreational drugs?: NoWhat was the date of your most recent tobacco screening?: 08/09/2024Education and OccupationAre you currently employed?: YesWhat 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?: Care giverAdvance DirectiveDo you have an advance directive?: NoSurgical HistorySurgical & Procedure History not reviewed (last reviewed 07/03/2024) Removal of tonsils - Tonsil removal Total hysterectomy - Hysterectomy (total) Colonoscopy with biopsy - Colonoscopy (camera from below into colon) Appendectomy - Appendix removal Cholecystectomy Hysterectomy Additional HistoryNone recordedHistory of Present IllnessNone recordedReview of SystemsNone recordedPhysical ExamNone recordedProcedure DocumentationNone recordedAssessment/PlanDATE OF INVESTIGATION: October 31, 2024 DATE OF INTERPRETATON: November 16, 2024 REASON FOR STUDY: Fecal incontinence. SUMMARY OF DATA: The patient has a low mean resting pressure of 21.6 mmHg and a short anal canal length of 1.1 cm. She has a diminished squeeze pressure with a mean increase of only 6.5 mmHg but a squeeze duration of 14.8 seconds which is low normal. Appropriate cough pressures. She has a paradoxical response to push with a 0% relaxation and residual push pressure of 29.4 mmHg. Diminished sensation pressure with a first sensation volume of 30 mL and a maximum tolerable volume of only 50 mL. RAIR is present at 58% with a 50 cc balloon. ASSESSMENT: Fecal incontinence. PLAN: The patient s anal manometry data would suggest that she would be a great candidate for sacral neuromodulation. Recommend an office visit to discuss.rja 1.Incontinence of feces, unspecified fecal incontinence typeR15.9: Full incontinence of feces Return to Office Mariposa Carpenter DPT for PT Return Visit 60.EST at [address] [facility] ([place]) on 11/22/2024 at 10:00 AM Silvia Jackson MD for Established Patient 15.EST at [address] [facility] ([place] on 11/27/2024 at 03:00 PM Matty Albarran MD [address] [place] [address], [phone], [facility] 11/19/2024 11:57:02 Procedures Surgical History Date Name Laterality Status Provider Name and Address Organization Details Recorded Time hysterectomy completed Neema Lacey [facility] 07/03/2024 09:35:38 cholecystectomy completed Neema Bains [facility] 07/03/2024 09:35:54 Appendectomy completed Not Available Health Note 08/02/2024 21:13:32 Colonoscopy with biopsy completed Not Available Health Note 08/02/2024 21:13:32 Total hysterectomy completed Not Available Healt h Note 08/02/2024 21:13:32 Removal of tonsils completed Not Available Healt h Note 08/02/2024 21:13:32 Imaging Results Imaging Date Name Status LastModified by Organiz ation Details LastModified Time 10/31/2024 anorectal manometry (PROC) completed [email or web address] Information not available 11/17/2024 09:56:08 Procedure Notes None recorded. Medical Equipment None Reported. Allergies No known drug allergies Medications Name Sig Start Date Stop Date Status Note LastModified by Organization Details LastModified Time famotidine 40 mg tablet TAKE 1 TABLET BY MOUTH EVERY DAY active Not Available Not Available No t Available tramadol 50 mg tablet TAKE 1/2-1 TABLET BY MOUTH AT BEDTIME active Not Available Not Available No t Available FiberCon 625 mg tablet Take 1 tablet twice a day by oral route for 30 days. 2023 active Not Available Not Available Not Avai lable montelukast 10 mg tablet TAKE 1 TABLET BY MOUTH EVERY DAY IN THE EVENING active Not Available Not Available No t Available dicyclomine 10 mg capsule TAKE 1 CAPSULE BY MOUTH FOUR TIMES A DAY 08/09 completed Not Available Not Available Not Available cholestyrami ne (with sugar) 4 gram powder for susp in a packet TAKE 1 PACKET TWICE A DAY BY ORAL ROUTE FOR 30 DAYS. 11/27 completed Not Available Not Available Not Available rosuvastatin 5 mg tablet TAKE 1 TABLET BY MOUTH EVERY DAY active Not Available Not Available No t Available Vitals Date Recorded Body height Body mass index (BMI) Body weight Systolic blood pressure Diastolic blood pressure Provider Name and Address Organization Details Last Updated DateTime 11/27/2024 147.32 cm 26.3 kg/m2 77823.92 g 116 mm[Hg] 72 mm[Hg] Eileen Corrales [facility] 16:17:10 Social History Question Answer Notes LastModified by Organizat ion Details LastModified Time Tobacco Smoking Status Never Smoker Not Available Health Note 08/02/2024 21:13:33 Do You Have An Advance Directive? No [email or web address] Information not available 08/02/2024 What Is Your Level Of Alcohol Consumption? None [email or web address] Information not available 08/02/2024 What Is Your Level Of Caffeine Consumption? Occasional [email or web address] Information not available 08/02/2024 Are You Currently Employed? Yes [email or web address] Information not available 08/02/2024 What Is Your Occupation? [employer] [email or web address] Information not available 08/02/2024 How Many Times Per Week Do You Exercise? 1-2 Times Per Week [email or web address] Information not available 08/02/2024 What Was The Date Of Your Most Recent Tobacco Screening? 08/09/2024 [email or web address] Information not available 08/02/2024 What Is Your Relationship Status? [email or web address] Information not available 08/02/2024 Do You Use Any Illicit Or Recreational Drugs? No [email or web address] Information not available 08/02/2024 Sex: Unknown Functional Status Question Answer Note LastModified by Organizat ion Details LastModified Time What is your exercise level? Occasional [email or web address] Information not available 08/02/2024 Mental Status None recorded. Family History Relationship Description Onset Age of this Age Resolved Age Notes LastModified by Organization Details LastModified Time Mother Malignant neoplasm of female breast [email or web address] Not available 2023 09:34:34 Mother Malignant neoplasm of uterus [email or web address] Not available 2023 09:34:56 Mother Family history of malignant neoplasm [email or web address] Not available 2023 21:13:32 Mother Chronic obstructive pulmonary disease [email or web address] Not available 2023 21:13:32 Mother Heart disease [email or web address] Not available 2023 21:13:32 Maternal Aunt Malignant tumor of rectum [email or web address] Not available 2023 09:35:19 Unspecified Relation Attention deficit hyperactivit y disorder [email or web address] Not available 08/02 21:13:32 Brother Arthritis [email or web address] Not availabl e 08/02/2024 21:13:32 Brother Diabetes mellitus [email or web address] Not available 2023 21:13:32 Brother Heart disease [email or web address] Not available 2023 21:13:32 Brother Hypertensive disorder [email or web address] Not available 2023 21:13:32 Brother Hypercholest erolemia [email or web address] Not available 2023 21:13:32 Sister Asthma [email or web address] Not available 21:13:32 Sister Chronic obstructive pulmonary disease [email or web address] Not available 2023 21:13:32 Father Chronic obstructive pulmonary disease [email or web address] Not available 2023 21:13:32 Daughter Diabetes mellitus [email or web address] Not available 2023 21:13:32 Daughter Hypertensive disorder [email or web address] Not available 2023 21:13:32 Medical History Condition Response High Blood Pressure N COPD N Depression N Anxiety Disorder N Arthritis Y Cancer N Stroke N Fibromyalgia N Kidney Disease N Attention-deficit Hyperactivity Disorder N Thyroid Problems N Anemia Y Diabetes N Bleeding Disorder N Hyperlipidemia N Asthma N Seizures N Heart Disease N Osteoporosis N Gynecological HistoryNo gynecological history recorded. Obstetrics History GPAL:G 0 P 0 0 0 0 Immunizations Vaccine Type Date Status Note Provider Nam e and Address Organization Details Recorded Time zoster recombinant 3 completed Eileen Corrales [facility] 11/27/2024 16:17:15 zoster recombinant 3 completed Eileen Corrales [facility] 11/27/2024 16:17:15 Influenza, high-dose, quadrivalent, PF 2 completed Eileen Wassell null, [facility] 11/27/2024 16:17:15 Influenza, high-dose, quadrivalent, PF 0 [facility] 16:17:15 COVID-19, mRNA, LNP-S, PF, 30 mcg/0.3 mL dose 1 completed [facility] 11/27/2024 16:17:15 COVID-19, mRNA, LNP-S, PF, 30 mcg/0.3 mL dose 1 completed Eileen Wassell [facility] 11/27/2024 16:17:15 Pneumococcal conjugate PCV20, polysaccharide GGB937 conjugate, adjuvant, PF 3 completed [facility] 11/27/2024 16:17:15 pneumococcal polysaccharide PPV23 9 completed [facility] 11/27/2024 16:17:15 Pneumococcal conjugate PCV 13 8 completed Eileen Wassell [facility] 11/27/2024 16:17:15 Influenza, high-dose, trivalent, PF 8 completed [facility] 11/27/2024 16:17:15 Influenza, high-dose, trivalent, PF 4 completed [facility] 11/27/2024 16:17:15 Influenza, high-dose, trivalent, PF 9 completed [facility] 11/27/2024 16:17:15 Td (adult), 2 Lf tetanus toxoid, preservative free, adsorbed 2 completed [facility]/27/2024 16:17:15 Past Encounters Encounter ID Performer Location Encounter Start Date Encounter Closed Date Diagnosis/Indication Diagnosis SNOMED-CT Code Diagnosis ICD10 Code Diagnosis Note [id number] Matty Albarran MD [address] [facility] ([place]) [address] [place] [address] 07/03/2024 09:18:36 07/03/2024 10:25:12 Chronic diarrhea 291011131 K52.9 Incontinence of feces 72 956709 R15.9 Additional diagnosis detail: Incontinen ce of feces, unspecifie d fecal incontinen ce type [id number] Matty Albarran MD [facility] [address] [place] [address] 08/09/2024 13:48:39 08/14/2024 04:42:25 [id number] Mariposa Carpenter, DPT [address] [facility] [facility] ([place]) [address] [place] [address] 10/05/2024 11:55:31 10/05/2024 14:10:18 Complete fecal incontinence 9194263135 533586 R15.9 [id number] Mariposa Carpenter DPT [address] PT ([place]) [address] [place] [address] 10/31/2024 08:39:50 11/02/2024 06:43:08 Complete fecal incontinence 4773581886 365579 R15.9 [id number] Mariposa Carpenter DPT [address] [facility] [facility] ([place]) [address] [place] [address] 11/01/2024 10:01:19 11/01/2024 10:47:58 Complete fecal incontinence 9876756778 506993 R15.9 [id number] Silvia Jackson MD [address] ([place]) [address] [place] [address] 11/16/2024 16:32:38 11/17/2024 13:37:41 Incontinence of feces 53102722 R15.9 [id number] Eileen Corrales [address] ([place]) [address] [place] [address] 11/27/2024 15:23:35 11/27/2024 17:38:18 Health Concerns Section Related Observation LastModified by Organization Detai ls LastModified Time None Recorded Concern Status LastModified by Organization Details LastModified Time None Recorded Advance Directives Directive N: Payers Encounter Date Sequence Insurance Name Policy Number Policy Boyd Covered Member ID Boyd Member ID Guarantor Name 10/05/2024 1 [facility] (MEDICARE REPLACEMENT/A DVANTAGE - HMO) [id number] Lisa Norman [id number] Lisa Norman 10/31/2024 1 [place]ARE[place] Lisa Norman [id number] Lisa Norman 10/31/2024 2 [employer] Lisa Norman [id number] Lisa Norman 11/01/2024 1 [employer]MEDICARE) Lisa Norman [id number] Lisa Norman 11/01/2024 2 [employer] Lisa Norman [id number] Lisa Norman 11/16/2024 1 [employer] (MED[place]ARE) Lisa Norman [id number] Lisa Norman 11/16/2024 2 [employer] CLAIMS OFF[employer] Lisa Norman [id number] Lisa Norman Notes Date Note Type Note Provider Name and Address Organization Details Recorded Time 10/05/2024 text/html Chief complaint/onset/symp ramesh progression: Patient is a 69-year-old female here today with her . She has complaints of fecal incontinence. Patient is referred by Dr. Albarran from colorectal. Patient reports having a long history of constipation with laxative use. However, after having a colonoscopy 6 months ago her constipation has returned to diarrhea and she is experiencing fecal incontinence. Sometimes she has no warning before it happens. Since she saw the doctor last in July she was switched from cholestyramine to taking FiberCon 625 mg. She has noticed her stools are more solid and formed. As result she has had less episodes of fecal incontinence. She has weak pelvic floor muscles a InterStim device was suggested. Patient would like to try all nonsurgical options first. Pertinent past medical history includes cholecystectomy, perineal tearing with delivery of third child. Bladder habits/symptoms:Urin ayesha frequency during the day: 4 times Urinary frequency during the night: 0-1, used to be several times Patient experiences postvoid dribble after urination Pad usage: 0 Bowel habits/symptoms: Patient reports currently having 3-4 bowel movements a day. She used to have bowel movements at night but no longer does. She will have a bowel movement first thing in the morning a couple more in the afternoon and then 1 right before bed.Fecal incontinence occurs with urge and with stress. She will have loss of stool with a cough She was wearing pads for the fecal incontinence until 2 weeks ago. She denies any straining. Consistency of stools a type IV on the [place] scalePatient unable to hold back gas and often loses gas with certain movements. Fluid intake: Patient has switched to decaf coffee and will still consume 2 cups of coffee, 212 ounce sodas a day and 16 to 28 ounces of water. Trigger foods: Patient is not 100% sure of what triggers her bowel movements but she does stay away from dairy, apple juice, apples, salads. Occupation: Retired Lifestyle/quality of life/functional limitations: Her and her do engage in long trips in the car and anytime she is in the car she will reduce good intake to only safe foods and decrease fluid. She will not travel until after she has had her bowel movement first thing in the morning. Urogenital history: Patient has had 3 children vaginally. 1 was a stillbirth. Her third child resulted in tearing and had stitches. Mariposa Carpenter DPT [address] [place] [address], [phone], [facility] 10/05/2024 14:40:31 10/31/2024 text/html Patient is a 69-year-old female here today with a diagnosis of fecal incontinence. Patient started with fecal incontinence 6 months or more ago. She has a history of constipation which she changed to loose stools after having a colonoscopy. She was prescribed cholestyramine which caused constipation. She moved to taking fiber supplement . This has firmed up her stools. But she will still have incontinence of stool even firm stool. She strained some of the time Mariposa Carpenter, GABE [address] [place] [address], [phone], [facility] 11/01/2024 21:53:05 11/01/2024 text/html Patient returns to physical therapy for treatment of her fecal incontinence. She had anal manometry testing yesterday. Since testing she has felt increased gas and has lost mucousy stool which could be from the excess lubricant. She has not had a bowel movement since. Patient states she is not sure she wants to continue physical therapy since it so far away and difficult to get to. She came yesterday for testing. She came today because she had to visit her brother in the hospital anyway. She is not sure with the weather if she will be able to make her next appointment but she is going to keep them and just cancel if it is too bad for travel at this time. Mariposa Carpenter, DPT [address] [facility], [place], [id number], [facility] 11/01/2024 10:44:24 OBGyn Episode No OBEpisode recorded.
== END 2024-11-29 08:52 | disposition home or self-care (01) ==
LOC: CHSIMG 08:53
PROVIDERS: PCP Internal Medicine; Visit Provider Internal Medicine
DX: S82.402A Unspecified fracture of shaft of left fibula, initial encounter for closed fracture (principal)
CPT/HCPCS: 73610

== ENCOUNTER 2025-05-18 12:57 | Outpatient (CLI) | payer MEDICARE, SELFPAY ==
--- NOTE | ~2025-05-18 | MM_ITS ---
EXAMINATION: MM screening sylvia BI w lukas HISTORY: Screening TECHNIQUE: Craniocaudal and mediolateral oblique 3-D tomosynthesis images were obtained and synthetic 2-D images were generated. CAD analysis was submitted and interpreted. COMPARISON: Comparison to multiple prior studies sequentially, with oldest reviewed study dated 03/2021. BREAST PARENCHYMAL COMPOSITION: Dense: The breasts are heterogeneously dense, which may obscure small masses FINDINGS: There is no evidence of suspicious mass, calcification, or architectural distortion to sugg est malignancy in either breast. There has been no suspicious interval change. IMPRESSION: 1. No mammographic evidence of malignancy. 2. Recommend routine screening mammography in one year. BI-RADS Category 1: Negative Reviewed, dictated and finalized at location B.
== END 2025-05-18 12:58 | disposition home or self-care (01) ==
LOC: CHSIMG 13:03
PROVIDERS: PCP Internal Medicine; Visit Provider Internal Medicine
DX: Z12.31 Encounter for screening mammogram for malignant neoplasm of breast (principal)
CPT/HCPCS: 77063; 77067

== ENCOUNTER 2025-05-30 10:03 | Outpatient (CLI) | payer MEDICARE, SELFPAY ==
--- NOTE | ~2025-05-30 | XR_ITS ---
Exam: X-ray ankle left minimum 3 views CLINICAL HISTORY: Follow-up fracture x7 months ago TECHNIQUE: 4 images of the left ankle were obtained. COMPARISON: 11/29/2024 FINDINGS: Healed fracture of the distal left fibula. Mild soft tissue swelling about the left ankle. Talar dome is unremarkable. Small plantar and posterior calcaneal spurs. No new fracture. Bone mineralization i s within normal limits. IMPRESSION: 1. Healed fracture of the distal left fibula. 2. No new acute bony abnormality identified. Reviewed, dictated and finalized at location A.
== END 2025-05-30 10:04 | disposition home or self-care (01) ==
PROVIDERS: PCP Internal Medicine; Visit Provider Internal Medicine
DX: S82.832D Other fracture of upper and lower end of left fibula, subsequent encounter for closed fracture with routine healing (principal)
CPT/HCPCS: 73610

== ENCOUNTER 2025-08-16 14:17 | Outpatient (CLI) | payer MEDICARE, SELFPAY ==
--- NOTE | ~2025-08-16 | XR_ITS ---
PROCEDURE(S): 2 views left hip INDICATION(S): Left lower extremity pain. Possible radiculopathy. COMPARISON(S): None. TECHNIQUE: 2 radiographic images were submitted for interpretation. FINDINGS: Bones: There are no fractures seen. There are no destructive lesions or other lesions identified. Joints: There are no dislocations identified. There is no evidence of erosive arthropathy. There is what appears to be a stimulator device in the posterior soft tissues on the left with its lead projected over the left hemisacrum on the frontal view. There are multiple surgical clips in the pelvis. IMPRESSION: No acute abnormalities are seen. Reviewed, dictated and finalized at location A.
--- NOTE | ~2025-08-16 | XR_ITS ---
XR lumbar spine 2-3V Indication: L Leg Pain, Radiculopathy Comparison: None Findings: The vertebral heights are intact. No fracture or subluxation. The disc heights are intact. Soft tissues unremarkable Impression: No acute abnormality. Reviewed, dictated and finalized at location P. Impression: No acute abnormality.
--- NOTE | ~2025-08-16 | XR_ITS ---
EXAMINATION: XR knee LT 3V, 08/16/2025 14:30 CDT HISTORY: L Leg Pain, Radiculopathy COMPARISON: No comparisons available. Findings: No acute fracture or malalignment. No significant degenerative changes. Soft tissues unremarkable. Impression: No acute fracture or malalignment. Reviewed, dictated and finalized at location P. Impression: No acute fracture or malalignment.
== END 2025-08-16 14:18 | disposition home or self-care (01) ==
LOC: CHSIMG 14:19
PROVIDERS: PCP Internal Medicine; Visit Provider Internal Medicine
DX: M79.605 Pain in left leg (principal); M54.10 Radiculopathy, site unspecified
CPT/HCPCS: 72100; 73502; 73562

== ENCOUNTER 2025-09-19 13:37 | Outpatient (CLI) | payer MEDICARE, SELFPAY ==
--- NOTE | ~2025-09-19 | XR_ITS ---
EXAMINATION: XR pelvis 1-2V, 09/19/2025 13:50 [employer] OR [employer] HISTORY: SACRAL NERVE STIMULATOR PRESENT COMPARISON: No comparisons available. Findings: No acute fracture or malalignment. No significant degenerative changes. Soft tissues unremarkable. Left-sided sacral stimulator noted. Impression: No acute fracture or malalignment. Reviewed, dictated and finalized at location P. 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
== END 2025-09-19 13:38 | disposition home or self-care (01) ==
LOC: CHSIMG 13:45
PROVIDERS: PCP Internal Medicine
DX: Z96.82 Presence of neurostimulator (principal)
CPT/HCPCS: 72170